=== PATIENT | female | born 1980 | race Caucasian/White ===

== ENCOUNTER 2020-12-27 10:50 | Emergency (ER) | payer OTHER ==
[~2020-12-27] VITALS: Ht 165.1 cm; Wt 81.2 kg
[2020-12-27 10:55] VITALS: BP 174/110
--- NOTE | 2020-12-27 10:55 | NUR ---
Patient ambulated to bed 5.
--- NOTE | 2020-12-27 11:10 | NUR ---
ekg at bedside
--- NOTE | 2020-12-27 11:18 | NUR ---
lab at the bedside
[2020-12-27] MEDS ORDERED: HYDROcodone/APAP 5/325 MG 1 TAB TAB PO ONE (11:25)
--- NOTE | 2020-12-27 11:25 | NUR ---
40 y/o female coming in from home with c/c abdominal pain. Pt presents A&Ox4, ambulatory and states that she's had abdominal pain for two days, pain is sharp and constant in nature, is at the midepigastric region and radiates to left upper quadrant. Patient denies aggravating or alleviating factors. Patient states that she has had one episode of vomiting and intermittent nausea. Patient declines diarrhea, fever, chills, flank pain, dysuria, hematuria. Pt placed on electronic device monitor, bed locked in lowest position, side rails x 1. PMH: DM, HTN, High Cholesterol Meds: Metformin, Benazepril, No known drug allergies
[2020-12-27 11:30] LABS: BASOPHILS % (AUTO) 0.5 % (0.0-2.0); EOSINOPHILS # (AUTO) 0.1 K/uL (0-0.4); EOSINOPHILS % (AUTO) 0.9 % (0.0-4.0); HEMATOCRIT 40.6 % (36-48); HEMOGLOBIN 13.4 g/dL (12.0-16.0); LYMPHOCYTES # (AUTO) 2.2 K/uL (2.5-16.5); LYMPHOCYTES % (AUTO) 23.3 % (20.5-51.1); MEAN CORPUSCULAR HEMOGLOBIN 28 pg (27-31); MEAN CORPUSCULAR HGB CONC 33 g/dL (33-37); MEAN CORPUSCULAR VOLUME 83.7 fL (80-94); MONOCYTES # (AUTO) 0.5 K/uL (0.8-1.0); MONOCYTES % (AUTO) 4.8 % (1.7-9.3); NEUTROPHILS # (AUTO) 6.8 K/uL (1.8-7.7); NEUTROPHILS % (AUTO) 70.5 % (42.2-75.2); PLATELET COUNT (AUTO) 263 K/uL (140-450); RED BLOOD CELL COUNT(AUTO) 4.85 MIL/uL (4.20-5.40); RED CELL DISTRIBUTION WIDTH 13.4 % (11.6-13.7); WHITE BLOOD COUNT (AUTO) 9.6 K/uL (4.8-10.8)
--- NOTE | 2020-12-27 11:35 | NUR ---
Xray at bedside
[2020-12-27 11:43] LABS: PROTHROMBIN TIME 9.5 secs (10.8-13.4)
[2020-12-27 11:46] LABS: ALBUMIN 3.4 g/dL (3.4-5.0); ANION GAP 12.5 (8-16); CARBON DIOXIDE 28.6 mmol/L (21-32); CREATININE 0.7 mg/dL (0.6-1.3); POTASSIUM 4.1 mmol/L (3.5-5.1); TOTAL BILIRUBIN 0.2 mg/dL (0.0-1.0)
--- NOTE | 2020-12-27 12:06 | NUR ---
US at bedside
[2020-12-27] MEDS ORDERED: CEPH250C16 PO (12:40)
[2020-12-27] MEDS ORDERED: [UNRECOGNIZED DRUG - CODE] PO (12:45)
[2020-12-27 12:53] VITALS: BP 161/98
--- NOTE | 2020-12-27 12:54 | NUR ---
Patient discharged with v/s stable. Written and verbal after care instructions given and explained. Patient alert, oriented and verbalized understanding of instructions. Ambulatory with steady gait. All questions addressed prior to discharge. ID band removed. Patient advised to follow up with PMD. Rx of Keflex 500mg given. Patient educated on indication of medication including possible reaction and side effects. Opportunity to ask questions provided and answered.
== END 2020-12-27 12:54 | disposition home or self-care (01) ==
LOC: MED 10:50
DX: R10.13 Epigastric pain (principal); R11.2 Nausea with vomiting, unspecified; Z79.899 Other long term (current) drug therapy
CPT/HCPCS: 36415; 71045; 76700; 80053; 81002; 81025; 84484; 85025; 85610; 85730; 93005; 99285

== ENCOUNTER 2021-03-17 11:58 | Emergency (ER) | payer OTHER ==
[~2021-03-17] VITALS: Ht 160 cm; Wt 85.3 kg
[~2021-03-17 11:58] MED LIST: CEPH250C16 PO; [UNRECOGNIZED DRUG - CODE] PO
[2021-03-17 12:03] VITALS: BP 149/100
--- NOTE | 2021-03-17 12:21 | NUR ---
40 Y/O F BIB SELF D/T C/O SORETHROAT. PT STATES NO COVID-19 EXPOSURE OR HX. SHE HAS BEEN VACCINATED AND COMPLETED THE SERIES. RESP IS EVEN AND NON-LABORED. VS WNL. SHE HAD FEVER AT 89F LAST NIGHT AND TOOK TYLENOL. SHE SAID IT HURTS TO SWALLOW. NO OTHER COMPLAINTS REPORTED. PMH: DM, HTN ALLERGY: NKA
--- NOTE | 2021-03-17 12:55 | NUR ---
COLLECTED STREP AND AIDE. DROP OFF TO LAB.
[2021-03-17] MEDS ORDERED: PROM473S5 PO (13:32)
[2021-03-17] MEDS ORDERED: NAPR-54 PO (13:32)
[2021-03-17] MEDS ORDERED: AMOX500C25 PO (13:32)
[2021-03-17 13:40] VITALS: BP 127/89
--- NOTE | 2021-03-17 13:41 | NUR ---
Patient discharged with v/s stable. Written and verbal after care instructions given and explained. Patient alert, oriented and verbalized understanding of instructions. Ambulatory with steady gait. All questions addressed prior to discharge. ID band removed. Patient advised to follow up with PMD. Rx of AMOXICILLIN, NAPROXEN, AND PROMETHAZINE given. Patient educated on indication of medication including possible reaction and side effects. Opportunity to ask questions provided and answered.
== END 2021-03-17 13:41 | disposition home or self-care (01) ==
LOC: MED 11:58
DX: J02.9 Acute pharyngitis, unspecified (principal); Z20.822 Contact with and (suspected) exposure to COVID-19
CPT/HCPCS: 87081; 99283

== ENCOUNTER 2022-01-04 17:33 | Emergency (ER) | payer OTHER ==
[~2022-01-04] VITALS: Ht 157.5 cm; Wt 88.0 kg
[~2022-01-04 17:33] MED LIST changes: +AMOX500C25 PO; +NAPR-54 PO; +PROM473S5 PO
[2022-01-04 17:45] VITALS: BP 158/99
--- NOTE | 2022-01-04 18:02 | NUR ---
41 Y/O FEMALE PATIENT PRESENTS TO ED WITH C/O LOWER LEFT ABDOMINAL PAIN X 1 DAY. PT STATES N/V, DENIES DIARRHEA; LAST BOWEL MOVEMENT WAS TODAY. ABD IS TENDER TO PALPATION. SKIN IS PINK/WARM/DRY; AAOX4 WITH EVEN AND STEADY GAIT; PT DENIES ANY FEVER, CP, SOB, OR COUGH AT THIS TIME; PATIENT STATES PAIN OF 8/10 AT THIS TIME; VSS; PATIENT POSITIONED FOR COMFORT; HOB ELEVATED; BEDRAILS UP X1; BED DOWN. ER MD MADE AWARE OF PT STATUS. PMEDHX: DM, HTN, HIGH CHOLESTEROL, ACID REFLUX NKDA
[2022-01-04] MEDS ORDERED: MORPHINE SULFATE 4 MG/ML SYR IVP ONE (18:30)
[2022-01-04] MEDS ORDERED: ONDANSETRON 4 MG/2 ML VIAL IVP ONE (18:30)
[2022-01-04] MEDS ORDERED: NACL 0.9% 1,000 ML IV ONE (18:30)
--- NOTE | 2022-01-04 19:26 | NUR ---
HANDOFF REPORT GIVEN TO YADI RN
[2022-01-04 19:38] LABS: BASOPHILS % (AUTO) 0.5 % (0.0-2.0); EOSINOPHILS # (AUTO) 0.1 K/uL (0-0.4); EOSINOPHILS % (AUTO) 1.7 % (0.0-4.0); HEMATOCRIT 38.8 % (36-48); HEMOGLOBIN 13.1 g/dL (12.0-16.0); LYMPHOCYTES # (AUTO) 2.5 K/uL (2.5-16.5); LYMPHOCYTES % (AUTO) 32.9 % (20.5-51.1); MEAN CORPUSCULAR HEMOGLOBIN 29 pg (27-31); MEAN CORPUSCULAR HGB CONC 34 g/dL (33-37); MEAN CORPUSCULAR VOLUME 85.5 fL (80-94); MONOCYTES # (AUTO) 0.4 K/uL (0.8-1.0); MONOCYTES % (AUTO) 4.9 % (1.7-9.3); NEUTROPHILS # (AUTO) 4.5 K/uL (1.8-7.7); PLATELET COUNT (AUTO) 274 K/uL (140-450); RED BLOOD CELL COUNT(AUTO) 4.53 MIL/uL (4.20-5.40); RED CELL DISTRIBUTION WIDTH 13.1 % (11.6-13.7); WHITE BLOOD COUNT (AUTO) 7.5 K/uL (4.8-10.8)
--- NOTE | 2022-01-04 19:53 | NUR ---
PATIENT BACK FROM CT, ATTACHED TO MONITOR AND FLUIDS. PATIENT AAOX4.
[2022-01-04 20:02] LABS: ALBUMIN 3.2 g/dL (3.4-5.0); TOTAL BILIRUBIN 0.2 mg/dL (0.0-1.0)
[2022-01-04 20:11] LABS: ANION GAP 11.9 (8-16); CARBON DIOXIDE 25.2 mmol/L (21-32); CREATININE 0.5 mg/dL (0.6-1.3); POTASSIUM 4.1 mmol/L (3.5-5.1)
--- NOTE | 2022-01-04 22:21 | NUR ---
pelvic done at bedside wet mound collected sent to lab
--- NOTE | 2022-01-04 22:56 | NUR ---
ultrasound still at bedside
--- NOTE | 2022-01-05 00:33 | NUR ---
waiting on ultersound results. ct abd/pelvis result back. pt laying in gurney with siderails up
--- NOTE | 2022-01-05 01:37 | NUR ---
patient ambulated to the bathroom with a steady gait for urine collection.
--- NOTE | 2022-01-05 01:44 | NUR ---
patient urine sent to lab and asked for stat ua.
--- NOTE | 2022-01-05 01:47 | NUR ---
called to expedite ultrasound for patient.
[2022-01-05 01:49] LABS: APPEARANCE,URINE CLEAR (CLEAR); BILIRUBIN,URINE NEGATIVE (NEGATIVE); BLOOD, URINE NEGATIVE (NEGATIVE); COLOR,URINE YELLOW (YELLOW); LEUKOCYTE ESTERASE ,URINE NEGATIVE (NEGATIVE); NITRITE, URINE NEGATIVE (NEGATIVE); UGLUCOSE 3+ (NEGATIVE)
[2022-01-05 02:06] LABS: RBC,URINE 0-5 /HPF (0-5); WBC,URINE 0-5 /HPF (0-5); YEAST,URINE Few /HPF (None Seen)
[2022-01-05] MEDS ORDERED: FLUC150T PO (02:11)
[2022-01-05] MEDS ORDERED: METF-1022 PO (02:11)
--- NOTE | 2022-01-05 02:13 | NUR ---
IV removed, catheter intact and site benign. Applied folded 4x4 gauze and tape to stop bleeding.
[2022-01-05 02:14] VITALS: BP 137/80
--- NOTE | 2022-01-05 02:14 | NUR ---
Patient discharged with v/s stable. Written and verbal after care instructions given and explained. Patient alert, oriented and verbalized understanding of instructions. Ambulatory with steady gait. All questions addressed prior to discharge. ID band removed. Patient advised to follow up with PMD. Rx of diflucan and metformin hcl given. Patient educated on indication of medication including possible reaction and side effects. Opportunity to ask questions provided and answered.
--- NOTE | 2022-01-07 12:56 | NUR ---
LATE ENTRY- IV NORMAL SALINE DISCONTINUED AT 0214.
== END 2022-01-05 02:14 | disposition home or self-care (01) ==
LOC: MED 17:33
DX: N76.0 Acute vaginitis (principal); B37.3 Candidiasis of vulva and vagina; E11.65 Type 2 diabetes mellitus with hyperglycemia
CPT/HCPCS: 36415; 71045; 74176; 76830; 80048; 80076; 81001; 81025; 82948; 83690; 84484; 85025; 87086; 87210; 93005; 96361; 96374; 96375; 99285; J2270; J2405; J7030; Q0092; 99283

== ENCOUNTER 2023-04-09 12:20 | Emergency (ER) | payer OTHER ==
[~2023-04-09] VITALS: Ht 160 cm; Wt 83.0 kg
[~2023-04-09 12:20] MED LIST changes: +FLUC150T PO; +METF-1253 PO
[2023-04-09 12:37] VITALS: BP 159/100
[2023-04-09] MEDS ORDERED: IBUP-2213 PO (13:54)
[2023-04-09] MEDS ORDERED: ACET-10509 PO (13:54)
[2023-04-09] MEDS ORDERED: KETOROLAC 30 MG/ML VIAL IM ONE (14:00)
--- NOTE | 2023-04-09 14:13 | NUR ---
Patient discharged with v/s stable. Written and verbal after care instructions given and explained. Patient alert, oriented and verbalized understanding of instructions. Ambulatory with steady gait. All questions addressed prior to discharge. ID band removed. Patient advised to follow up with PMD. Rx of MOTRIN, TYLENOL given. Patient educated on indication of medication including possible reaction and side effects. Opportunity to ask questions provided and answered.
== END 2023-04-09 14:13 | disposition home or self-care (01) ==
LOC: MED 12:20
DX: S92.534A Nondisplaced fracture of distal phalanx of right lesser toe(s), initial encounter for closed fracture (principal); E11.9 Type 2 diabetes mellitus without complications; I10 Essential (primary) hypertension; Z79.84 Long term (current) use of oral hypoglycemic drugs; Z79.899 Other long term (current) drug therapy; W23.0XXA Caught, crushed, jammed, or pinched between moving objects, initial encounter; Y93.89 Activity, other specified; Y92.89 Other specified places as the place of occurrence of the external cause; Y99.8 Other external cause status
CPT/HCPCS: 73660; 96372; 99283; J1885

== ENCOUNTER 2023-07-05 08:11 | Emergency (ER) | payer OTHER ==
[~2023-07-05] VITALS: Ht 152.4 cm; Wt 87.1 kg
[~2023-07-05 08:11] MED LIST changes: +ACET-10509 PO; +IBUP-2213 PO
[2023-07-05 08:23] VITALS: BP 134/88; PULSE 87; RESP 16; TEMP 98; O2SAT 99
[2023-07-05] MEDS ORDERED: methylPREDNISolone SS 125 MG/2 ML VIAL IVP ONE (08:40)
[2023-07-05] MEDS ORDERED: FAMOTIDINE 20 MG/2 ML VIAL IVP ONE (08:40)
[2023-07-05] MEDS ORDERED: diphenhydrAMINE 50 MG/ML VIAL IVP ONE (08:40)
[2023-07-05] MEDS ORDERED: FAMO-90 PO (09:15)
[2023-07-05] MEDS ORDERED: DIPH25TA53 PO (09:15)
[2023-07-05] MEDS ORDERED: PRED20TA5 PO (09:15)
[2023-07-05] MEDS ORDERED: EPIN1KIT31 IM (09:16)
[2023-07-05 10:43] VITALS: BP 155/93; PULSE 79; RESP 18; TEMP 98; O2SAT 99
== END 2023-07-05 10:42 | disposition home or self-care (01) ==
LOC: MED 08:11
DX: L50.9 Urticaria, unspecified (principal); T78.49XA Other allergy, initial encounter; I10 Essential (primary) hypertension; E11.9 Type 2 diabetes mellitus without complications; Z79.4 Long term (current) use of insulin; Z79.899 Other long term (current) drug therapy; X58.XXXA Exposure to other specified factors, initial encounter
CPT/HCPCS: 96374; 96375; 99284; J1200; J2930; J3490

== ENCOUNTER 2023-07-06 09:13 | Emergency (ER) | payer OTHER ==
[~2023-07-06] VITALS: Ht 157.5 cm; Wt 86.6 kg
[~2023-07-06 09:13] MED LIST changes: +DIPH25TA53 PO; +EPIN1KIT31 IM; +FAMO-90 PO; +PRED20TA5 PO
[2023-07-06 09:18] VITALS: BP 175/98; PULSE 98; RESP 16; TEMP 97.5; O2SAT 98
[2023-07-06] MEDS ORDERED: methylPREDNISolone SS 125 MG/2 ML VIAL IVP ONE (09:45)
[2023-07-06] MEDS ORDERED: diphenhydrAMINE 50 MG/ML VIAL IVP ONE (09:45)
[2023-07-06] MEDS ORDERED: FAMOTIDINE 20 MG/2 ML VIAL IVP ONE (09:45)
[2023-07-06 12:55] VITALS: BP 155/77; PULSE 85; RESP 18; TEMP 96.8; O2SAT 96
== END 2023-07-06 12:55 | disposition home or self-care (01) ==
LOC: MED 09:13
DX: L50.9 Urticaria, unspecified (principal); T78.49XA Other allergy, initial encounter; E11.9 Type 2 diabetes mellitus without complications; I10 Essential (primary) hypertension; Z79.4 Long term (current) use of insulin; Z79.899 Other long term (current) drug therapy; X58.XXXA Exposure to other specified factors, initial encounter
CPT/HCPCS: 96374; 96375; 99284; J1200; J2930; J3490

== ENCOUNTER 2023-07-09 12:21 | Emergency (ER) | payer OTHER ==
[~2023-07-09] VITALS: Ht 162.6 cm; Wt 86.6 kg
[2023-07-09 12:58] VITALS: BP 124/83; PULSE 96; RESP 20; TEMP 96.4; O2SAT 98
[2023-07-09] MEDS ORDERED: diphenhydrAMINE 50 MG CAP PO ONE (13:20)
[2023-07-09] MEDS ORDERED: FAMOTIDINE 20 MG TAB PO ONE (13:20)
[2023-07-09] MEDS ORDERED: predniSONE 20 MG TAB PO ONE (13:20)
[2023-07-09] MEDS ORDERED: PRED20TA5 PO (13:35)
[2023-07-09] MEDS ORDERED: FAMO-92 PO (13:35)
[2023-07-09] MEDS ORDERED: BEN50 PO (13:35)
[2023-07-09] MEDS ORDERED: EPINEPHrine 1 MG/ML AMP IM ONE (13:45)
[2023-07-09 15:17] VITALS: BP 122/80; PULSE 81; RESP 20; TEMP 96.4; O2SAT 99
== END 2023-07-09 15:17 | disposition home or self-care (01) ==
LOC: MED 12:21
DX: L50.0 Allergic urticaria (principal); E11.9 Type 2 diabetes mellitus without complications; I10 Essential (primary) hypertension; Z79.4 Long term (current) use of insulin; Z79.899 Other long term (current) drug therapy
CPT/HCPCS: 96372; 99284; J0171; J7512; Q0163